=== PATIENT | female | born 2000 | race Caucasian/White ===

== ENCOUNTER 2022-02-02 13:52 | Inpatient (IN) ==
[2022-02-03] MEDS ORDERED: OXYTOCIN 30 UNITS/500 ML BAG IV PRN ×2 (08:02)
[2022-02-03 08:30] LABS: Hematocrit (blood only) 35.2 % (37-47); Hemoglobin 12.4 g/dL (12.0-16.0); Mean Corpuscular Hemoglobin 33.5 pg (25-34); Mean Corpuscular Hgb Conc 35.2 g/dL (32-36); Mean Corpuscular Volume 95.1 fL (80-100); Mean Platelet Volume 9.7 fL (7.4-10.4); Platelet Count 242 K/uL (130-400); RDW Coefficient of Variation 13.5 % (11.5-14.5); RDW Standard Deviation 46.9 fL (36.4-46.3); White Blood Count 7.99 K/uL (4.8-10.8)
[2022-02-03] MEDS ORDERED: PENICILLIN G POTASSIUM 6 MU in DEXTROSE 5% 250 ML IV ONE (08:30)
--- NOTE | 2022-02-03 09:31 | History & Physical Report ---
Date of Service February 03, 2022 Assessment & Plan (1) Encounter for supervision of normal in multigravida: Plan: Admit to L&D. Vivas bulb inserted, insufflated 35cc sterile water. Tolerated well. Will plan to start pitocin and Nina. Admission and Anticipated Discharge Date Admission Date: February 03, 2022 History of Present Illness Chief Complaint: IOL Primary Care Provider: NO PCP 21yo @ 39 01/24, here for IOL for post-dates. GBS+, history of MAB. Allergies Allergy/AdvReac Type Severity Reaction Status Date / Time latex Allergy Mild hives, Verified 02/01/22 09:33 itching Home Medications Medication Instructions Recorded Confirmed Type pediatric multivitamin 1 tab PO DAILY 02/03/22 02/03/22 History no.203-ferrous sulfate 18 mg chewable tablet (Flintstones with Iron) Patient History Medical History (Updated 01/25/22 @ 22:49 by Daiana Garcia MD, FACOG) History of shingles Surgical History (Updated 06/17/21 @ 13:32 by Amanda Segura RN) History of dilatation and curettage Family History (Updated 06/17/21 @ 13:21 by Amanda Segura RN) Grandmother (Maternal) Diabetes Denies family history of Ovarian cancer Prostate cancer Breast cancer Social History (Updated 06/17/21 @ 13:24 by Amanda Segura RN) Smoking Status: Former smoker Tobacco Type: E-cigarettes / Vaping Second Hand Exposure: Yes; Do You Dip or Chew Tobacco: No; Tobacco Cessation Education Requested by Patient: No Hx Alcohol Use: No Hx Substance Use: No Preferred Language: Sudanese Communication Ability: Effective Visual Impairment: No Limitations Hearing Ability: Normal Sill Worker Required: No Beliefs That Will Affect Care: None marital status: Single marital status details: Levy Seo (39) [phone] Current Living Situation: Significant Other Current Living Situation Comment: lives with FOB. 2 dogs and 1 cat. FOB changes litter current occupational status: employed current occupation: [employer] Other Information That Helps Us Care for You: No Feels Safe at Home: Yes Safety Concerns: Feels Safe At This Time Assistive Devices: None Review of Systems All systems reviewed & are unremarkable except as noted in HPI & below Physical Exam Physical Exam: FHT Cat 1 toco Q 2-3 SVE 1/80/-3 Constitutional: WD/WN, vitals as above Respiratory: normal respiratory effort, lungs clear to auscultation no respiratory distress Cardiovascular: Rate/Rhythm: regular rate and regular rhythm Gastrointestinal (Abdomen): Inspection/Auscultation: abdomen normal to inspection Percussion/Palpation: abdomen soft; abdomen nontender Gravid. No s/s chorio or abruption. Skin: no rashes, warm and dry Psychiatric: A+Ox3, euthymic affect Results & Data ([facility]) Vital Signs (Past 12 Hours) Vital Signs Temp Pulse Resp BP 02/03/22 07:49 36.7 C 84 20 128/74 02/03/22 07:46 84 128/74 Coding Level of Care Code None Diagnoses Encounter for supervision of normal in multigravida Z34.80
[2022-02-03] MEDS: LACTATED RINGER'S 1,000 ML IV PRN ×2 (10:21→20:58)
[2022-02-03] MEDS: PENICILLIN G POTASSIUM 3 MU in DEXTROSE 5% 100 ML IV PRN ×3 (14:03→22:24)
--- NOTE | 2022-02-03 17:05 | Labor Progress Brief Note ---
Date of Service February 03, 2022 Subjective in to check Assessment & Plan (1) Encounter for supervision of normal in multigravida: Plan: 21 y/o at 40 6/7 wga presents for IOL VSS Fetus cat 1 Labor - delgado bulb now out, titrate pit GBS+, pcn ordered epidural prn Admission and Anticipated Discharge Date Admission Date: February 03, 2022 Physical Exam Genitourinary: Manual OB Exam: + cervical dilation 3 cm, + cervical effacement 50% and + station -2 OB Exam Monitor Tracing: + external FHT monitor used, + external uterine monitor used (q2-5) and + category I (135/mod/+accel/-decel) delgado bulb palpated in vagina and removed Results & Data ([facility]) Vital Signs (Past 12 Hours) Vital Signs Temp Pulse Resp BP 02/03/22 16:27 68 126/74 02/03/22 15:27 71 120/69 02/03/22 14:25 81 111/58 L 02/03/22 13:25 81 119/56 L 02/03/22 12:27 82 121/70 02/03/22 11:29 86 133/79 02/03/22 10:25 72 142/69 H 02/03/22 07:49 98.1 F 84 20 128/74 02/03/22 07:46 84 128/74 02/03/22 07:45 98.2 F 20 Coding Level of Care Code None Diagnoses Encounter for supervision of normal in multigravida Z34.80
[2022-02-03] MEDS ORDERED: fentaNYL citrate 100 MCG/2 ML VIAL ONE (18:56)
[2022-02-03] MEDS ORDERED: ePHEDrine sulfate 50 MG/ML AMP ONE (18:56)
[2022-02-03] MEDS ORDERED: SODIUM CHLORIDE 0.9% INJ 10 ML VIAL ONE (18:56)
[2022-02-03] MEDS ORDERED: fentaNYL 2MCG/ML ROPIVACAINE 1.25MG/ML 100 ML BAG EPI ONE (18:57)
[2022-02-03] MEDS ORDERED: BUPIVACAINE 0.25% 30 ML VIAL ONE (18:57)
--- NOTE | 2022-02-03 19:31 | Anesthesiology Consultation ---
Date of Service February 03, 2022 Assessment & Plan Chart Review Chart Review: Acceptable Risk for Labor Epidural Consults Requested none History Height/Weight Height: 5 ft 2 in Weight: 72.575 kg Allergies Allergy/AdvReac Type Severity Reaction Status Date / Time latex Allergy Mild hives, Verified 02/01/22 09:33 itching Medications Home Medications Medication Instructions Recorded Confirmed Last Taken pediatric multivitamin 1 tab PO DAILY 02/03/22 02/03/22 02/02/22 22:00 no.203-ferrous sulfate 18 mg chewable tablet (Flintstones with Iron) Active Medications Generic Name Dose Route Start Last Admin Trade Name Freq PRN Reason Stop Dose Admin Oxytocin 30 units in 500 mls @ 12 mls/hr 02/03/22 08:02 02/03/22 18:30 Pitocin IV 02/05/22 08:01 0.72 units/hr .Q24H PRN 12 mls/hr Labor Induction/Augmentation Titration Protocol 0.72 UNITS/HR Lactated Ringer's 1,000 mls @ 125 mls/hr 02/03/22 08:02 02/03/22 19:28 Lr IV 02/05/22 08:01 125 mls/hr .Q8H PRN Infusion L&D Protocol Protocol Penicillin G Potassium 3 mu/ 106 mls @ 100 mls/hr 02/03/22 11:02 02/03/22 19:28 Dextrose IV 02/13/22 11:01 Infused Q4H PRN Infusion GBS(+) Until Delivery Past Medical History Medical History (Updated 01/25/22 @ 22:49 by Daiana Garcia MD, FACOG) History of shingles Past Family History Family History (Updated 06/17/21 @ 13:21 by Amanda Segura, YENNY) Grandmother (Maternal) Diabetes Denies family history of Ovarian cancer Prostate cancer Breast cancer Past Surgical History Surgical History (Updated 06/17/21 @ 13:32 by Amanda Segura, YENNY) History of dilatation and curettage Social History Smoking Status: Former smoker tobacco type: cigarettes Do You Dip or Chew Tobacco: No Hx Alcohol Use: No Hx Substance Use: No Physical Exam Vital Signs Last Vital Signs Temp 36.7 C 02/03/22 19:23 Pulse 82 02/03/22 19:29 Resp 18 02/03/22 19:23 BP 110/58 L 02/03/22 19:29 Testing Laboratory Results 02/03/22 08:09 Blood Type O Positive 02/03/22 08:09 Antibody Screen NEGATIVE 02/03/22 08:09
[2022-02-03] MEDS ORDERED: NALBUPHINE HCL INJ 10 MG/ML AMP IV PRN (19:34)
[2022-02-03] MEDS ORDERED: diphenhydrAMINE 50 MG/ML VIAL IV PRN (19:34)
[2022-02-03] MEDS ORDERED: NALOXONE HCL 1 MG in SODIUM CHLORIDE 0.9% 1000ML 1,000 ML IV PRN (19:34)
[2022-02-03] MEDS ORDERED: NALOXONE HCL 0.4 MG/1 ML VIAL/CARP IV PRN (19:34)
[2022-02-03] MEDS ORDERED: fentaNYL 2MCG/ML ROPIVACAINE 1.25MG/ML 100 ML BAG EPI PRN (19:34)
[2022-02-03] MEDS ORDERED: ePHEDrine sulfate 50 MG/ML AMP IV PRN (19:34)
--- NOTE | 2022-02-03 20:41 | Labor Progress Brief Note ---
Date of Service February 03, 2022 Subjective comfortable w /epidural Assessment & Plan (1) Encounter for supervision of normal in multigravida: Plan: 21 y/o at 40 6/7 wga presents for IOL VSS Fetus cat 1 Labor - pit at 12, now s/p arom. continue augmentation GBS+, pcn ordered epidural in place Admission and Anticipated Discharge Date Admission Date: February 03, 2022 Physical Exam Genitourinary: Manual OB Exam: + cervical dilation 4 cm, + cervical effacement 50%, + station -2 and + amniotic fluid (arom) clear OB Exam Monitor Tracing: + external FHT monitor used, + external uterine monitor used (q2-3) and + category I (125/mod/+accel/-decel) Results & Data ([facility]) Vital Signs (Past 12 Hours) Vital Signs Temp Pulse Resp BP 02/03/22 20:29 77 129/74 02/03/22 20:15 79 125/73 02/03/22 20:00 77 18 119/70 02/03/22 19:46 71 121/71 02/03/22 19:29 82 110/58 L 02/03/22 19:28 98.1 F 18 02/03/22 19:27 83 109/57 L 02/03/22 19:25 82 112/60 02/03/22 19:23 98.1 F 91 H 18 111/59 L 02/03/22 19:21 80 111/62 02/03/22 19:19 84 114/63 02/03/22 19:17 76 113/58 L 02/03/22 19:15 92 H 121/75 02/03/22 19:13 76 134/80 02/03/22 19:11 86 133/81 02/03/22 19:06 78 130/83 02/03/22 18:27 73 123/75 02/03/22 17:25 81 123/68 02/03/22 16:27 68 126/74 02/03/22 15:27 71 120/69 02/03/22 14:25 81 111/58 L 02/03/22 13:25 81 119/56 L 02/03/22 12:27 82 121/70 02/03/22 11:29 86 133/79 02/03/22 10:25 72 142/69 H Coding Level of Care Code None Diagnoses Encounter for supervision of normal in multigravida Z34.80
--- NOTE | 2022-02-04 02:14 | Delivery Summary ---
Vaginal Delivery Summary Date of Service February 04, 2022 Vaginal Delivery Summary [facility] PREOPERATIVE DIAGNOSIS: 1. Single intrauterine at 41 wga 2. GBS+ POSTOPERATIVE DIAGNOSIS: 1. Single intrauterine at 41 wga 2. GBS+ 3. Delivered PROCEDURE: 1. Normal spontaneous vaginal delivery. SURGEON: Charis Joyner MD ANESTHESIA: Epidural. ESTIMATED BLOOD LOSS: 300 mL FLUIDS: Continuous LR. URINE OUTPUT: 100cc by straight cath after delivery COMPLICATIONS: None. CONDITION: Stable. INDICATIONS: 21 y/o at 41 wga presented 1 day ago for induction of labor. Induction was started with delgado bulb and pitocin. Following delgado bulb expulsion, pitocin was titrated up. She received an epidural for pain control and then underwent artificial rupture of membranes. She then progressed and desired to push. FINDINGS: A viable female , weight pending with Apgars of 8 and 9 at 1 and 5 minutes respectively. SPECIMEN: Cord blood OPERATIVE REPORT: The patient progressed to 10 cm, 100% effaced and +2 station, pushed over intact perineum with anesthesia to deliver a viable female , weight and Apgars as above. Head of delivered in AIXA position. No nuchal cord was present. Body and shoulders were delivered without difficulty. was delivered to maternal abdomen and nursing staff. Delayed cord clamping was performed for 60 seconds. Cord was clamped and cut. Cord blood was obtained. Placenta delivered spontaneously intact with 3-vessel cord. IV oxytocin and fundal massage were given for excellent hemostasis. Vagina, cervix, perineum, and placenta were inspected. A left vaginal laceration was noted and repaired in the usual fashion using 3-0 vicryl. There was excellent hemostasis. Sponge and needle counts correct x2. No sponges were left behind. Mother and stable in immediate period. [facility] [place] Vaginal Delivery Charge Vaginal Delivery Codes: 89455 global code for the antepartum, delivery, and post- Delivery Type Details: [facility]
[2022-02-04] MEDS ORDERED: OXYTOCIN 30 UNITS/500 ML BAG IV PRN (02:46)
[2022-02-04] MEDS ORDERED: HYDROCORTISONE ACETATE 25 MG SUPP PR PRN (02:46)
[2022-02-04] MEDS ORDERED: ACETAMINOPHEN 325 MG TAB PO PRN (02:46)
[2022-02-04] MEDS ORDERED: DIPHTHERIA/TETANUS/PERTUSSIS 0.5 ML SYR/VIAL IM ONE (02:46)
[2022-02-04] MEDS ORDERED: BENZOCAINE 20% AER SPR 82.5 GM CAN EXT PRN (02:46)
[2022-02-04] MEDS: IBUPROFEN 600 MG TAB PO PRN ×4 (03:17→23:40)
--- NOTE | 2022-02-04 08:38 | Anesthesia Procedure Note ---
Date of Service February 04, 2022 Anesthesia Post Epidural Note Vital Signs Vital Signs: Temp Pulse Resp BP Pulse Ox 36.6 C 80 18 128/75 91 02/04/22 05:00 02/04/22 05:00 02/04/22 05:00 02/04/22 05:00 02/04/22 01:43 Notes Mental Status: alert / awake / arousable and participated in evaluation Nausea / Vomiting: adequately controlled Pain: adequately controlled Airway Patency, RR, SpO2: stable & adequate BP & HR: stable & adequate Hydration State: stable & adequate Neuraxial Anesthesia: was administered and sensory block resolved Anesthetic Complications: no major complications apparent and Pt Satisfied with anesthetic care Epidural: Removed without complications and With tip intact
[2022-02-04] MEDS: DOCUSATE SODIUM 100 MG CAP PO SCH ×2 (08:40→19:29)
[2022-02-04] MEDS: PRENATAL VITAMIN 1 TAB PO SCH (08:40)
[2022-02-04] MEDS: FERROUS SULFATE 325 MG TAB PO SCH (08:40)
[2022-02-05] MEDS: IBUPROFEN 600 MG TAB PO PRN ×2 (03:55→20:54)
--- NOTE | 2022-02-05 08:07 | Obstetrical Progress Note ---
Date of Service February 05, 2022 Assessment & Plan (1) with 39 completed weeks gestation: PPD#1 doing well. No concerns. Routine recovery. Desires discharge home today, reviewed instructions. Followup in office 6w PP. Subjective Ambulation: ambulating normally Voiding: no voiding problems Diet Tolerance:: regular diet Lochia:: Moderate Review of Systems All systems reviewed & are unremarkable except as noted in HPI & below Physical Exam Constitutional WD/WN, vitals as above no acute distress Respiratory normal respiratory effort Cardiovascular Rate/Rhythm: regular rate and regular rhythm Gastrointestinal (Abdomen) Inspection/Auscultation: abdomen normal to inspection; abdomen not distended Percussion/Palpation: abdomen soft Genitourinary OB Exam Abdomen: + fundal height Fundus: + firm; not tender Results & Data ([facility]) Vital Signs (Past 12 Hours) Vital Signs Temp Pulse Resp BP Pulse Ox 02/04/22 23:30 36.6 C 69 18 120/61 98
[2022-02-05] MEDS: FERROUS SULFATE 325 MG TAB PO SCH (09:49)
[2022-02-05] MEDS: PRENATAL VITAMIN 1 TAB PO SCH (09:49)
[2022-02-05] MEDS: DOCUSATE SODIUM 100 MG CAP PO SCH ×2 (09:49→20:54)
[2022-02-05] MEDS ORDERED: bisacodyL 5 MG TABEC PO SCH (20:00)
[2022-02-06] MEDS ORDERED: bisacodyL 10 MG SUPP PR PRN
--- NOTE | 2022-02-06 06:14 | Obstetrical Progress Note ---
Date of Service February 06, 2022 Assessment & Plan (1) with 39 completed weeks gestation: Plan: Pt is a 21 y/o female s/p PPD2 complicated by GBS+ treated with penicillin. -Continue routine care -Tylenol and ibuprofen for pain -O+, GBS+, treated -Reviewed d/c instructions with patient -D/c home today, f/u with OB in 6 weeks w/ Dr. Joyner Admission and Anticipated Discharge Date Admission Date: February 03, 2022 Supervising Physician Co-Signing Physician Notes Resident Physician Supervision Note: I was present with Dr. Dean during the history and exam. I discussed the case with the resident and agree with the findings and plan as documented in the note. Any exceptions or clarifications are listed here: PPD#2 doing well. DC home today. Reviewed DC instructions. Documented By: Anali Bo, DO Subjective Pt is a 21 y/o female s/p PPD2 complicated by GBS+ treated with penicillin. Doing well this morning. Denies any chest pain, SOB, abominal pain, headaches. Reports moderate lochia. Ambulating and going to the bathroom. Eating and drinking well. Ending up staying yesterday due to concern for not getting enough breastmilk out to feed her baby and requested help from the counselor. Otherwise, has no other complaints this morning. Feels comfortable with going home today. Review of Systems Review of Systems: All systems reviewed & are unremarkable except as noted in HPI & below Physical Exam Constitutional: WD/WN, vitals as above Eyes: + anicteric sclerae Neck: normal visual inspection Respiratory: normal respiratory effort, lungs clear to auscultation Cardiovascular: Rate/Rhythm: regular rate and regular rhythm Gastrointestinal (Abdomen): Inspection/Auscultation: abdomen normal to inspection and normal bowel sounds Musculoskeletal: Head/Neck/Chest: normocephalic and head atraumatic Skin: no rashes, warm and dry Neurologic: moves all extremities Psychiatric: A+Ox3, euthymic affect Genitourinary: OB Exam Abdomen: + fundal height (2 cm below umbilicus) Fundus: + firm Results & Data ([facility]) Vital Signs (Past 12 Hours) Vital Signs Temp Pulse Resp BP Pulse Ox 02/05/22 22:54 36.6 C 65 18 117/66 98 02/05/22 20:50 36.8 C 71 16 127/77 97
[2022-02-06] MEDS: FERROUS SULFATE 325 MG TAB PO SCH (07:36)
[2022-02-06] MEDS: PRENATAL VITAMIN 1 TAB PO SCH (07:36)
[2022-02-06] MEDS: DOCUSATE SODIUM 100 MG CAP PO SCH (07:36)
[2022-02-06] MEDS: IBUPROFEN 600 MG TAB PO PRN (07:36)
== END 2022-02-06 11:15 | disposition home or self-care (01) | DRG 807 ==
LOC: 4S1 02-03 07:35 → 4E2 02-04 04:25